=== PATIENT | female | born 1945 | race African-American/Black ===

== ENCOUNTER 2021-10-15 16:20 | Inpatient (IN) | payer OTHER, BC ==
[2021-10-15 18:12] LABS: ALBUMIN 2.3 g/dl (3.4-5.0); BILIRUBIN,TOTAL 0.8 mg/dl (0.2-1); CALCIUM 8.3 mg/dl (8.5-10); CREATININE 0.6 mg/dl (0.55-1.3); TOT PROT 6.1 g/dl (6.4-8.2)
[2021-10-15 18:26] LABS: ERYTHROCYTE SEDIMENTATION RATE 81 mm/hr (0-30)
[2021-10-15 18:34] LABS: EPITHELIAL CELLS FEW /hpf
[2021-10-15] MEDS ORDERED: POTASSIUM CHLORIDE ORAL LIQUID 20 MEQ/15 ML PO ONE (18:48)
[2021-10-15] MEDS ORDERED: POTASSIUM CHLORIDE ORAL LIQUID 20 MEQ/15 ML ONE (18:53)
[2021-10-15] MEDS ORDERED: SODIUM CHLORIDE 0.9% 1000 ML INFUS.BAG IV ONE (18:59)
[2021-10-15 19:15] LABS: HEMATOCRIT 34.7 % (32.4-45.2); MCHC 31.7 g/dl (32.0-36.0); MEAN CELL VOLUME 88.3 fl (80-96); MEAN PLT VOLUME 11.6 fl (7.5-11.1); PLATELET COUNT 322 10^3/uL (134-434); RBC 3.93 M/mm3 (3.60-5.2); WHITE BLOOD COUNT 21.3 K/mm3 (4.0-10.0)
[2021-10-15 20:26] LABS: ANISOCYTOSIS 2+; MACROCYTOSIS 0; PLATELET ESTIMATE NORMAL
[2021-10-15 20:28] LABS: MAGNESIUM 2.3 mg/dL (1.8-2.4)
[2021-10-15 21:51] VITALS: BMI 22.8
[2021-10-16 08:19] LABS: ALBUMIN 2.1 g/dl (3.4-5.0); BILIRUBIN,TOTAL 0.7 mg/dl (0.2-1); CALCIUM 7.9 mg/dl (8.5-10); CREATININE 0.6 mg/dl (0.55-1.3); TOT PROT 5.7 g/dl (6.4-8.2)
[2021-10-16] MEDS ORDERED: D5-1/2NS+20 MEQ KCL - 20 MEQ/1,000 ML INFUS.BAG IV SCH (08:30)
[2021-10-16] MEDS ORDERED: DEXTROSE 5%-WATER - 50 ML IVPB ONE (09:26)
[2021-10-16] MEDS ORDERED: cefTRIAXone SODIUM 1 GM VIAL ONE (09:26)
[2021-10-16] MEDS: CEFTRIAXONE 1 GM in DEXTROSE 5%-WATER - 50 ML IVPB SCH (10:16)
[2021-10-16 10:53] LABS: BASO % 0.4 % (0-2.0); EOS % 0.2 % (0-4.5); HEMATOCRIT 35.9 % (32.4-45.2); HEMOGLOBIN 11.2 GM/dL (10.7-15.3); LYMPH % 4.3 % (8-40); MCH 27.9 pg (25.7-33.7); MCHC 31.3 g/dl (32.0-36.0); MEAN CELL VOLUME 89.4 fl (80-96); MEAN PLT VOLUME 11.3 fl (7.5-11.1); MONO % 7.2 % (3.8-10.2); NEUT % 87.9 % (42.8-82.8); PLATELET COUNT 358 10^3/uL (134-434); RBC 4.02 M/mm3 (3.60-5.2); RDW 15.6 % (11.6-15.6)
[2021-10-16 11:45] LABS: ANISOCYTOSIS 0; HELMET CELLS 0; HOWELL-JOLLY BODIES 0; MACROCYTOSIS 0; OVALOCYTE 0; PLATELET ESTIMATE NORMAL; ROULEAU 0; SICKELED CELLS 0; TARGET CELLS 0; TEAR DROP CELLS 0; TOXIC GRANULATION 0
[2021-10-16] MEDS: D5-NS + 40 MEQ KCL - 40 MEQ/1,000 ML INFUS.BAG IV SCH (14:23)
[2021-10-16] MEDS ORDERED: ACETAMINOPHEN 325 MG TABLET (FP) PO ONE (22:05)
[2021-10-17 08:16] LABS: ALBUMIN 1.8 g/dl (3.4-5.0); BILIRUBIN,TOTAL 0.6 mg/dl (0.2-1); CALCIUM 7.9 mg/dl (8.5-10); CREATININE 0.5 mg/dl (0.55-1.3); TOT PROT 5.1 g/dl (6.4-8.2)
[2021-10-17] MEDS ORDERED: DEXTROSE 5%-WATER - 50 ML IVPB ONE (08:58)
[2021-10-17] MEDS ORDERED: cefTRIAXone SODIUM 1 GM VIAL ONE (08:58)
[2021-10-17] MEDS: CEFTRIAXONE 1 GM in DEXTROSE 5%-WATER - 50 ML IVPB SCH (09:09)
[2021-10-17] MEDS ORDERED: POTASSIUM CHLORIDE TABS 10 MEQ TABLET.ER (FP) PO ONE (09:15)
[2021-10-17 09:38] LABS: HEMATOCRIT 33.3 % (32.4-45.2); HEMOGLOBIN 10.5 GM/dL (10.7-15.3); MCH 28.3 pg (25.7-33.7); MCHC 31.6 g/dl (32.0-36.0); MEAN CELL VOLUME 89.4 fl (80-96); MEAN PLT VOLUME 10.8 fl (7.5-11.1); PLATELET COUNT 350 10^3/uL (134-434); RBC 3.73 M/mm3 (3.60-5.2); RDW 15.5 % (11.6-15.6); WHITE BLOOD COUNT 20.9 K/mm3 (4.0-10.0)
[2021-10-17] MEDS: D5-NS + 40 MEQ KCL - 40 MEQ/1,000 ML INFUS.BAG IV SCH (11:09)
[2021-10-17 11:14] LABS: ANISOCYTOSIS 1+; MACROCYTOSIS 0; PLATELET ESTIMATE NORMAL
[2021-10-17] MEDS: diphenhydrAMINE HCL 25 MG CAPSULE (FP) PO SCH (22:30)
[2021-10-18] MEDS ORDERED: LACTULOSE 20 GM/30 ML UDC (FOR ORAL USE ONLY) PO ONE (02:06)
[2021-10-18 10:25] LABS: ALBUMIN 1.9 g/dl (3.4-5.0); BILIRUBIN,TOTAL 0.5 mg/dl (0.2-1); CALCIUM 7.8 mg/dl (8.5-10); CREATININE 0.5 mg/dl (0.55-1.3); TOT PROT 5.8 g/dl (6.4-8.2)
[2021-10-18 12:41] LABS: HEMATOCRIT 32.1 % (32.4-45.2); HEMOGLOBIN 10.2 GM/dL (10.7-15.3); MCH 28.4 pg (25.7-33.7); MCHC 31.8 g/dl (32.0-36.0); MEAN CELL VOLUME 89.4 fl (80-96); MEAN PLT VOLUME 10.5 fl (7.5-11.1); PLATELET COUNT 399 10^3/uL (134-434); RBC 3.59 M/mm3 (3.60-5.2); RDW 15.5 % (11.6-15.6); WHITE BLOOD COUNT 19.6 K/mm3 (4.0-10.0)
[2021-10-18] MEDS: D5-NS + 40 MEQ KCL - 40 MEQ/1,000 ML INFUS.BAG IV SCH (15:34)
[2021-10-18] MEDS: diphenhydrAMINE HCL 25 MG CAPSULE (FP) PO SCH (21:39)
[2021-10-19 08:26] LABS: ALBUMIN 1.9 g/dl (3.4-5.0); BILIRUBIN,TOTAL 0.6 mg/dl (0.2-1); CALCIUM 8.2 mg/dl (8.5-10); CREATININE 0.4 mg/dl (0.55-1.3); TOT PROT 5.3 g/dl (6.4-8.2)
[2021-10-19 09:56] LABS: HEMOGLOBIN 10.3 GM/dL (10.7-15.3); MCH 27.9 pg (25.7-33.7); MCHC 31.1 g/dl (32.0-36.0); MEAN CELL VOLUME 89.7 fl (80-96); MEAN PLT VOLUME 10.7 fl (7.5-11.1); PLATELET COUNT 426 10^3/uL (134-434); RBC 3.68 M/mm3 (3.60-5.2); WHITE BLOOD COUNT 26.5 K/mm3 (4.0-10.0)
[2021-10-19] MEDS: D5-NS + 40 MEQ KCL - 40 MEQ/1,000 ML INFUS.BAG IV SCH (16:24)
[2021-10-19 17:03] LABS: HEPATITIS B SURFACE AG MATERN NON-REACTIVE (NONREACTIVE)
[2021-10-19] MEDS: diphenhydrAMINE HCL 25 MG CAPSULE (FP) PO SCH (22:18)
[2021-10-19] MEDS: SODIUM CHLORIDE 1,000 ML IV SCH (22:19)
[2021-10-20 09:31] LABS: ALBUMIN 1.8 g/dl (3.4-5.0); BILIRUBIN,TOTAL 0.6 mg/dl (0.2-1); CREATININE 0.5 mg/dl (0.55-1.3); TOT PROT 5.3 g/dl (6.4-8.2)
[2021-10-20 09:43] LABS: HEMATOCRIT 30.9 % (32.4-45.2); HEMOGLOBIN 9.8 GM/dL (10.7-15.3); MCH 28.3 pg (25.7-33.7); MCHC 31.7 g/dl (32.0-36.0); MEAN CELL VOLUME 89.2 fl (80-96); MEAN PLT VOLUME 10.2 fl (7.5-11.1); PLATELET COUNT 398 10^3/uL (134-434); RBC 3.47 M/mm3 (3.60-5.2); RDW 15.8 % (11.6-15.6); WHITE BLOOD COUNT 18.5 K/mm3 (4.0-10.0)
[2021-10-20] MEDS: HEPARIN NA (PORCINE) 5,000 UNITS/ML 1ML VIAL SQ SCH (21:04)
[2021-10-20] MEDS: diphenhydrAMINE HCL 25 MG CAPSULE (FP) PO SCH (21:04)
[2021-10-20] MEDS: SODIUM CHLORIDE 1,000 ML IV SCH (21:04)
[2021-10-20] MEDS: D5-NS + 40 MEQ KCL - 40 MEQ/1,000 ML INFUS.BAG IV SCH (21:05)
[2021-10-21] MEDS: HEPARIN NA (PORCINE) 5,000 UNITS/ML 1ML VIAL SQ SCH ×2 (10:00→21:43)
[2021-10-21] MEDS: SODIUM CHLORIDE 1,000 ML IV SCH (21:44)
[2021-10-21] MEDS: diphenhydrAMINE HCL 25 MG CAPSULE (FP) PO SCH (21:44)
[2021-10-21 23:10] LABS: MYOGLOBIN SERUM 2471 ng/mL (25-58)
[2021-10-22 08:48] LABS: ALBUMIN 1.8 g/dl (3.4-5.0); BILIRUBIN,TOTAL 0.6 mg/dl (0.2-1); CALCIUM 7.9 mg/dl (8.5-10); CREATININE 0.5 mg/dl (0.55-1.3); TOT PROT 5.2 g/dl (6.4-8.2)
[2021-10-22 09:59] LABS: HEMATOCRIT 28.8 % (32.4-45.2); HEMOGLOBIN 9.6 GM/dL (10.7-15.3); MCH 29.2 pg (25.7-33.7); MCHC 33.4 g/dl (32.0-36.0); MEAN CELL VOLUME 87.5 fl (80-96); MEAN PLT VOLUME 9.7 fl (7.5-11.1); PLATELET COUNT 305 10^3/uL (134-434); RBC 3.29 M/mm3 (3.60-5.2); RDW 15.9 % (11.6-15.6); WHITE BLOOD COUNT 13.1 K/mm3 (4.0-10.0)
[2021-10-22 10:08] LABS: COXSACKIE A16 IGM Negative titer (Neg:<1:10); COXSACKIE A24 IGM Negative titer (Neg:<1:10); COXSACKIE A7 IGM Negative titer (Neg:<1:10); COXSACKIE A9 IGM Negative titer (Neg:<1:10)
[2021-10-22] MEDS: HEPARIN NA (PORCINE) 5,000 UNITS/ML 1ML VIAL SQ SCH ×2 (10:14→21:26)
[2021-10-22] MEDS ORDERED: POTASSIUM CHLORIDE TABS 10 MEQ TABLET.ER (FP) PO ONE (11:45)
[2021-10-22] MEDS: BANATROL PLUS POWDER PACKET PO SCH ×3 (13:16→21:27)
[2021-10-22] MEDS ORDERED: POTASSIUM CHLORIDE TABS 20 MEQ TABLET.ER (FP) PO ONE (13:30)
[2021-10-22] MEDS: SODIUM CHLORIDE 1,000 ML IV SCH (16:57)
[2021-10-22] MEDS: diphenhydrAMINE HCL 25 MG CAPSULE (FP) PO SCH (21:26)
[2021-10-23 02:07] LABS: FIBROSIS SCORE. 0.14 (0.00-0.21); HCV ALPHA 2 MACRO CHART 114 mg/dL (110-276); NECRO.INFLAM ACT.SCORE 0.75 (0.00-0.17); NECROINFLAM. ACTIVITY GRADE A3-Severe activity (.)
[2021-10-23] MEDS: BANATROL PLUS POWDER PACKET PO SCH (06:42)
[2021-10-23 06:48] VITALS: BP 121/89; PULSE 93; TEMP 99.6
[2021-10-23] MEDS: HEPARIN NA (PORCINE) 5,000 UNITS/ML 1ML VIAL SQ SCH (09:50)
== END 2021-10-23 13:08 | DRG 558 ==
LOC: FER 16:20 → FM/S 20:23
PROVIDERS: ADMIT Internal Medicine; ATTEND Family Medicine
DX: M62.82 Rhabdomyolysis (principal); E87.1 Hypo-osmolality and hyponatremia; I31.3 Pericardial effusion (noninflammatory); N39.0 Urinary tract infection, site not specified; R62.7 Adult failure to thrive; E87.6 Hypokalemia; D72.829 Elevated white blood cell count, unspecified; I10 Essential (primary) hypertension; E78.5 Hyperlipidemia, unspecified
CPT/HCPCS: 36415; 70450-TC; 71045-TC-FY; 71250-TC; 72131-TC; 73030-TC-LT-FY; 74176-TC; 80048; 80053; 80061; 81003; 81015; 82085; 82140; 82172; 82306; 82550; 82553; 82607; 82746; 82977; 83010; 83036; 83615; 83735; 83874; 83883; 83935; 84300; 84439; 84443; 84460; 85025; 85027; 85651; 86038; 86140; 86235; 86431; 86480; 86618; 86658; 86705; 86707; 86708; 86780; 87040; 87086; 87340; 87522; 87804; 87807; 87902; 93005; 93306-TC; 97116-GP; 97162-GP; 99285-25; C9803; J1644; U0003; U0005

== ENCOUNTER 2021-12-19 16:04 | Inpatient (IN) | payer OTHER, BC ==
[2021-12-19] MEDS ORDERED: SODIUM CHLORIDE 0.9% 500 ML INFUS.BAG IV ONE (17:33)
[2021-12-19] MEDS ORDERED: ACETAMINOPHEN 1000 MG/100 ML BAG IVPB ONE (17:33)
[2021-12-19] MEDS ORDERED: ACETAMINOPHEN INJECTION 100 ML IVPB ONE (18:28)
[2021-12-19 18:31] LABS: PH,URINE 6.5 (5.0-8.0); URINE APPEARANCE CLEAR; URINE BILIRUBIN NEGATIVE (NEGATIVE); URINE COLOR YELLOW; URINE GLUCOSE (UA) NEGATIVE (NEGATIVE); URINE KETONE TRACE (NEGATIVE); URINE LEUK ESTERASE NEGATIVE (NEGATIVE); URINE NITRITE NEGATIVE (NEGATIVE); URINE PROTEIN TRACE (NEGATIVE); URINE UROBILINOGEN 4.0 E.U/dl mg/dL (0.2-1.0)
[2021-12-19 18:56] LABS: VENOUS BASE EXCESS -0.9 mmol/L (-2-2); VENOUS PCO2 33.4 mmHg (38-52); VENOUS PH 7.451 (7.310-7.410)
[2021-12-19 18:57] LABS: BASO % 0.8 % (0-2.0); HEMATOCRIT 24.9 % (32.4-45.2); HEMOGLOBIN 7.6 GM/dL (10.7-15.3); LYMPH % 8.1 % (8-40); MCH 24.6 pg (25.7-33.7); MCHC 30.6 g/dl (32.0-36.0); MEAN CELL VOLUME 80.5 fl (80-96); MEAN PLT VOLUME 9.6 fl (7.5-11.1); MONO % 7.4 % (3.8-10.2); NEUT % 82.7 % (42.8-82.8); PLATELET COUNT 375 10^3/uL (134-434); RDW 17.8 % (11.6-15.6)
[2021-12-19] MEDS ORDERED: CEFEPIME HCL/D5W 2 GM/50 ML BAG IVPB ONE (19:12)
[2021-12-19] MEDS ORDERED: VANCOMYCIN/WATER 1,250 MG/250 ML BAG IVPB ONE (19:17)
[2021-12-19 19:26] LABS: ALBUMIN 2.5 g/dl (3.4-5.0); BLOOD UREA NITROGEN 8.7 mg/dL (7-18); CALCIUM 9.1 mg/dL (8.5-10.1)
[2021-12-19 19:28] LABS: CREATININE 0.6 mg/dL (0.55-1.3)
[2021-12-19 19:31] LABS: BILIRUBIN,TOTAL 0.4 mg/dL (0.2-1)
[2021-12-19] MEDS ORDERED: CEFEPIME 2 GM/100 ML BAG IVPB ONE (19:34)
[2021-12-19] MEDS ORDERED: VANCOMYCIN/WATER BAGS 1,250 MG/250 ML BAG IVPB ONE (19:38)
[2021-12-19] MEDS ORDERED: CEFEPIME 2 GM in DEXTROSE 5%-WATER 100 ML IVPB ONE (20:15)
[2021-12-19] MEDS ORDERED: POLYETHYLENE GLYCOL (HEALTHYLAX) 3350 17 GM PACKET PO PRN (21:20)
[2021-12-19] MEDS ORDERED: ACETAMINOPHEN 325 MG TABLET (FP) PO PRN (21:20)
[2021-12-20 00:07] LABS: ACTIVATED PTT 36.7 SECONDS (25.2-36.5); INR 1.21 (0.83-1.09); PROTHROMBIN TIME (PATIENT) 13.9 SEC (9.7-13.0)
[2021-12-20 00:11] LABS: MAGNESIUM 2.2 mg/dL (1.8-2.4)
[2021-12-20 00:15] LABS: PHOSPHOROUS 4.1 mg/dL (2.5-4.9)
[2021-12-20] MEDS ORDERED: METOPROLOL TARTRATE 5 MG/5 ML VIAL IVPUSH PRN (00:57)
[2021-12-20] MEDS ORDERED: VANCOMYCIN 1 GM in D5W (PRE-DOCKED) 1,000 MG/250 ML IVPB SCH (08:00)
[2021-12-20 09:20] LABS: BASO % 0.5 % (0-2.0); HEMATOCRIT 24.3 % (32.4-45.2); HEMOGLOBIN 7.8 GM/dL (10.7-15.3); LYMPH % 5.5 % (8-40); MCH 25.5 pg (25.7-33.7); MCHC 31.9 g/dl (32.0-36.0); MEAN CELL VOLUME 79.8 fl (80-96); MEAN PLT VOLUME 9.2 fl (7.5-11.1); MONO % 5.5 % (3.8-10.2); NEUT % 87.5 % (42.8-82.8); PLATELET COUNT 419 10^3/uL (134-434); RBC 3.05 M/mm3 (3.60-5.2); RDW 17.8 % (11.6-15.6); WHITE BLOOD COUNT 14.4 K/mm3 (4.0-10.0)
[2021-12-20 09:23] LABS: INR 1.22 (0.83-1.09); PROTHROMBIN TIME (PATIENT) 14.1 SEC (9.7-13.0)
[2021-12-20 09:25] LABS: ACTIVATED PTT 32.9 SECONDS (25.2-36.5)
[2021-12-20 09:31] LABS: BLOOD UREA NITROGEN 6.4 mg/dL (7-18); CALCIUM 8.4 mg/dL (8.5-10.1); MAGNESIUM 2.2 mg/dL (1.8-2.4)
[2021-12-20 09:35] LABS: CREATININE 0.4 mg/dL (0.55-1.3); PHOSPHOROUS 3.7 mg/dL (2.5-4.9)
[2021-12-20] MEDS: amLODIPine BESYLATE 5 MG TABLET (FP) PO SCH ×2 (09:37→11:01)
[2021-12-20] MEDS ORDERED: CEFEPIME IVPB SCH (10:00)
[2021-12-20] MEDS ORDERED: WATER IVPB SCH (10:00)
[2021-12-20] MEDS ORDERED: VANCOMYCIN/WATER FOR INJ (PEG) 1,000 MG/200 ML BAG IVPB SCH (10:00)
[2021-12-20] MEDS ORDERED: CEFEPIME HCL/D5W 2 GM/50 ML BAG IVPB SCH (10:00)
[2021-12-20] MEDS ORDERED: DEXTROSE 5% IVPB SCH (10:00)
[2021-12-20] MEDS ORDERED: CEFEPIME 2 GM in DEXTROSE 5%-WATER 2 GM/100 ML BAG IVPB SCH (10:00)
[2021-12-20] MEDS ORDERED: HYDROCHLOROTHIAZIDE 12.5 MG CAPSULE (FP) PO SCH (10:00)
[2021-12-20] MEDS ORDERED: DEXTROSE 5%-WATER 100 ML IVPB ONE (10:39)
[2021-12-20] MEDS ORDERED: CEFEPIME HCL 2 GM VIAL (RESTRICTED TO ID) ONE (10:39)
[2021-12-20] MEDS: VANCOMYCIN 1 GM in D5W (PRE-DOCKED) 1,000 MG/250 ML IVPB SCH ×2 (12:41→12:43)
[2021-12-20 16:05] VITALS: BMI 21.2
[2021-12-20] MEDS ORDERED: ATORVASTATIN CA 40 MG TABLET (FP) PO SCH (22:00)
[2021-12-21 08:46] LABS: BASO % 0.7 % (0-2.0); EOS % 0.9 % (0-4.5); HEMATOCRIT 24.5 % (32.4-45.2); HEMOGLOBIN 7.5 GM/dL (10.7-15.3); LYMPH % 6.2 % (8-40); MCH 24.8 pg (25.7-33.7); MCHC 30.7 g/dl (32.0-36.0); MEAN CELL VOLUME 80.9 fl (80-96); MEAN PLT VOLUME 9.5 fl (7.5-11.1); MONO % 6.2 % (3.8-10.2); PLATELET COUNT 343 10^3/uL (134-434); RBC 3.02 M/mm3 (3.60-5.2); RDW 17.5 % (11.6-15.6); RETICULOCYTES 2.07 % (0.5-1.5); WHITE BLOOD COUNT 15.1 K/mm3 (4.0-10.0)
[2021-12-21 08:50] LABS: INR 1.24 (0.83-1.09); PROTHROMBIN TIME (PATIENT) 14.3 SEC (9.7-13.0)
[2021-12-21 09:14] LABS: BLOOD UREA NITROGEN 6.3 mg/dL (7-18); CALCIUM 8.1 mg/dL (8.5-10.1)
[2021-12-21 09:17] LABS: CREATININE 0.5 mg/dL (0.55-1.3)
[2021-12-21] MEDS: POLYETHYLENE GLYCOL (HEALTHYLAX) 3350 17 GM PACKET PO SCH (10:23)
[2021-12-21] MEDS: PANTOPRAZOLE 40 MG TABLET PO SCH (10:23)
[2021-12-21] MEDS: amLODIPine BESYLATE 5 MG TABLET (FP) PO SCH ×2 (10:23→11:54)
[2021-12-21] MEDS ORDERED: IRON SUCROSE INJECTION 200 MG in SODIUM CHLORIDE 90 ML IVPB ONE (16:30)
[2021-12-22 08:56] LABS: BASO % 0.3 % (0-2.0); EOS % 1.3 % (0-4.5); HEMATOCRIT 26.8 % (32.4-45.2); HEMOGLOBIN 8.3 GM/dL (10.7-15.3); LYMPH % 7.7 % (8-40); MCH 25.2 pg (25.7-33.7); MEAN CELL VOLUME 81.4 fl (80-96); MEAN PLT VOLUME 9.6 fl (7.5-11.1); MONO % 6.7 % (3.8-10.2); PLATELET COUNT 386 10^3/uL (134-434); WHITE BLOOD COUNT 14.1 K/mm3 (4.0-10.0)
[2021-12-22 09:11] LABS: CALCIUM 8.7 mg/dL (8.5-10.1)
[2021-12-22 09:15] LABS: CREATININE 0.5 mg/dL (0.55-1.3)
[2021-12-22 09:16] LABS: TOT PROT 6.7 g/dl (6.4-8.2)
[2021-12-22 09:18] LABS: BILIRUBIN,TOTAL 0.5 mg/dL (0.2-1)
[2021-12-22] MEDS: predniSONE 20 MG TABLET (UD) PO SCH (10:57)
[2021-12-22] MEDS: PANTOPRAZOLE 40 MG TABLET PO SCH (10:57)
[2021-12-22] MEDS: POLYETHYLENE GLYCOL (HEALTHYLAX) 3350 17 GM PACKET PO SCH (10:57)
[2021-12-22] MEDS: FAMOTIDINE 20 MG TABLET PO SCH (10:58)
[2021-12-22] MEDS: amLODIPine BESYLATE 5 MG TABLET (FP) PO SCH (10:58)
[2021-12-23 09:59] LABS: LDH 236 U/L (84-246)
[2021-12-23] MEDS: predniSONE 20 MG TABLET (UD) PO SCH (10:22)
[2021-12-23] MEDS: POLYETHYLENE GLYCOL (HEALTHYLAX) 3350 17 GM PACKET PO SCH (10:22)
[2021-12-23] MEDS: FAMOTIDINE 20 MG TABLET PO SCH (10:22)
[2021-12-23] MEDS: amLODIPine BESYLATE 5 MG TABLET (FP) PO SCH (10:22)
[2021-12-23] MEDS: PANTOPRAZOLE 40 MG TABLET PO SCH (10:22)
[2021-12-24] MEDS: POLYETHYLENE GLYCOL (HEALTHYLAX) 3350 17 GM PACKET PO SCH (09:34)
[2021-12-24] MEDS: predniSONE 20 MG TABLET (UD) PO SCH (09:35)
[2021-12-24] MEDS: FAMOTIDINE 20 MG TABLET PO SCH (09:35)
[2021-12-24] MEDS: amLODIPine BESYLATE 5 MG TABLET (FP) PO SCH (09:35)
[2021-12-24] MEDS: PANTOPRAZOLE 40 MG TABLET PO SCH (09:36)
[2021-12-24 11:47] LABS: HEMATOCRIT 26.8 % (32.4-45.2); HEMOGLOBIN 8.3 GM/dL (10.7-15.3); MCH 25.2 pg (25.7-33.7); MCHC 31.1 g/dl (32.0-36.0); MEAN PLT VOLUME 9.2 fl (7.5-11.1); PLATELET COUNT 517 10^3/uL (134-434); RBC 3.31 M/mm3 (3.60-5.2); RDW 18.1 % (11.6-15.6); WHITE BLOOD COUNT 15.1 K/mm3 (4.0-10.0)
[2021-12-24 11:52] LABS: CALCIUM 9.3 mg/dL (8.5-10.1)
[2021-12-24 11:53] LABS: ALBUMIN 2.4 g/dl (3.4-5.0); BLOOD UREA NITROGEN 10.5 mg/dL (7-18)
[2021-12-24 11:56] LABS: CREATININE 0.6 mg/dL (0.55-1.3)
[2021-12-24 11:58] LABS: BILIRUBIN,TOTAL 0.3 mg/dL (0.2-1); TOT PROT 7.3 g/dl (6.4-8.2)
[2021-12-24 14:40] VITALS: BP 139/87; PULSE 96; TEMP 97.5
[2021-12-24 16:08] LABS: ATYPICAL pANCA <1:20 titer (Neg:<1:20); C-ANCA <1:20 titer (Neg:<1:20)
[2021-12-24 17:07] LABS: FREE KAPPA,SERUM 64.4 mg/L (3.3-19.4)
[2021-12-24] MEDS ORDERED: ATORVASTATIN CA 40 MG TABLET (FP) PO SCH (22:00)
[2021-12-25 06:08] LABS: SARS-CoV-2 NAA Not Detected (Not Detected)
== END 2021-12-24 16:16 | disposition home health service (06) | DRG 378 ==
LOC: JER 16:04 → JERBED 20:39 → J8W 12-20 00:52
PROVIDERS: ADMIT Internal Medicine; ATTEND Family Medicine
PROC: 0DB98ZX Excision of Duodenum, Via Natural or Artificial Opening Endoscopic, Diagnostic (ICD-10-PCS; 2021-12-23)
PROC: 0DB68ZX Excision of Stomach, Via Natural or Artificial Opening Endoscopic, Diagnostic (ICD-10-PCS; principal; 2021-12-23 11:00)
DX: K29.71 Gastritis, unspecified, with bleeding (principal); I31.3 Pericardial effusion (noninflammatory); E46 Unspecified protein-calorie malnutrition; R62.7 Adult failure to thrive; I10 Essential (primary) hypertension; J44.9 Chronic obstructive pulmonary disease, unspecified; D64.9 Anemia, unspecified; R63.4 Abnormal weight loss; E78.5 Hyperlipidemia, unspecified; R35.0 Frequency of micturition; M25.462 Effusion, left knee; R42 Dizziness and giddiness; E88.09 Other disorders of plasma-protein metabolism, not elsewhere classified; D72.829 Elevated white blood cell count, unspecified; K57.90 Diverticulosis of intestine, part unspecified, without perforation or abscess without bleeding; R63.0 Anorexia; K22.70 Barrett's esophagus without dysplasia; E78.00 Pure hypercholesterolemia, unspecified; B96.81 Helicobacter pylori [H. pylori] as the cause of diseases classified elsewhere; K44.9 Diaphragmatic hernia without obstruction or gangrene; F41.9 Anxiety disorder, unspecified; M60.9 Myositis, unspecified; Z68.21 Body mass index [BMI] 21.0-21.9, adult
CPT/HCPCS: 36415; 71045-TC-FY; 73562-TC-LT-FY; 80048; 80053; 81003; 82272; 82550; 82607; 82728; 82747; 82784; 82803; 83520; 83540; 83550; 83605; 83615; 83735; 83883; 84100; 84155; 84165; 84439; 84443; 84484; 85014; 85025; 85027; 85045; 85610; 85651; 85730; 86140; 86162; 86256; 86334; 87040; 87086; 87186; 87804; 88305-TC; 93005; 93010; 93971-TC; 97116-GP; 97161-GP; 99285-25; C9803-CS; J1756; U0003; U0005

== ENCOUNTER 2022-11-13 04:16 | Day surgery (SDC) | payer OTHER, BC ==
[2022-11-12 08:27] VITALS: BMI 23.6
[2022-11-13] MEDS ORDERED: KETOROLAC TROMETHAMINE 30 MG/1 ML VIAL ONE (08:40)
[2022-11-13 09:16] VITALS: TEMP 98
[2022-11-13 09:57] VITALS: RESP 20
[2022-11-13 11:19] VITALS: BP 115/62; PULSE 67
== END 2022-11-13 10:08 | disposition home or self-care (01) ==
LOC: JASU-ENDO 04:16
PROVIDERS: ATTEND Internal Medicine Gastroenterology
PROC: 0DJD8ZZ Inspection of Lower Intestinal Tract, Via Natural or Artificial Opening Endoscopic (ICD-10-PCS; principal; 2022-11-13 08:30)
DX: Z12.11 Encounter for screening for malignant neoplasm of colon (principal); K57.30 Diverticulosis of large intestine without perforation or abscess without bleeding; Z80.0 Family history of malignant neoplasm of digestive organs

== ENCOUNTER 2023-03-20 13:12 | Emergency (ER) | payer OTHER, BC ==
[2023-03-20 13:35] VITALS: BP 122/76; PULSE 95; RESP 16; TEMP 98; BMI 24.0
== END 2023-03-20 15:24 | disposition home or self-care (01) ==
LOC: FER 13:12
DX: M17.12 Unilateral primary osteoarthritis, left knee (principal); M25.462 Effusion, left knee; M25.562 Pain in left knee; M25.552 Pain in left hip; M79.605 Pain in left leg; M79.89 Other specified soft tissue disorders
CPT/HCPCS: 93971-TC; 99284-25

== ENCOUNTER 2024-12-12 21:19 | Inpatient (IN) | payer OTHER, BC ==
[2024-12-12 23:22] LABS: ABSOLUTE IMMATURE GRANULOCYTES 0.12 x10^3/uL (0.0-0.031); BASOPHILS # 0.04 x10^3/uL (0.01-0.08); EOSINOPHIL % 0.1 % (0.7-5.8); EOSINOPHILS # 0.02 x10^3/uL (0.04-0.36); HEMATOCRIT 30.8 % (34.1-44.9); HEMOGLOBIN 9.9 g/dL (11.2-15.7); MCHC 32.1 g/dl (32.2-35.5); MEAN CELL VOLUME 86.3 fl (79.4-94.8); MEAN PLT VOLUME 10.3 fl (9.4-12.3); MONOCYTE % 8.5 % (4.7-12.5); PLATELET COUNT 611 x10^3/uL (182-369); RDW 16.2 % (12.4-16.6)
[2024-12-12 23:37] LABS: ALBUMIN 3.3 g/dl (3.4-5.0); BILIRUBIN,TOTAL 0.7 mg/dl (0.2-1); CALCIUM 9.6 mg/dl (8.5-10.1); CREATININE 0.8 mg/dl (0.6-1.3); POTASSIUM 4.8 mmol/L (3.5-5.1); TOT PROT 6.7 g/dl (6.4-8.2)
[2024-12-13] MEDS ORDERED: ACETAMINOPHEN 1000 MG/100 ML BAG IVPB PRN (00:58)
[2024-12-13] MEDS ORDERED: KETOROLAC TROMETHAMINE 15 MG/ML VIAL ONE (01:06)
[2024-12-13] MEDS ORDERED: FAMOTIDINE 20 MG/50 ML IVPB 20 MG/50 ML MG IVPB ONE (01:06)
[2024-12-13] MEDS: FAMOTIDINE 20 MG/50 ML IVPB 20 MG/50 ML MG IVPB ONE (01:09)
[2024-12-13] MEDS: SODIUM CHLORIDE 0.9% 500 ML INFUS.BAG IV ONE (01:09)
[2024-12-13] MEDS: KETOROLAC TROMETHAMINE 15 MG/ML VIAL IVPUSH ONE (01:09)
[2024-12-13 02:09] VITALS: BMI 22.2
[2024-12-13] MEDS: PANTOPRAZOLE 40 MG TABLET PO SCH (16:43)
[2024-12-13] MEDS: HYDROXYCHLOROQUINE SO4 200 MG TABLET (FP) PO SCH (16:43)
[2024-12-13] MEDS: DULoxetine HCL 30 MG CAPSULE.DR PO SCH (16:44)
[2024-12-13] MEDS: DOCUSATE SODIUM 100 MG CAPSULE (FP) PO PRN (16:44)
[2024-12-13] MEDS: LISINOPRIL 10 MG TABLET PO SCH ×2 (19:12→21:21)
[2024-12-13 19:32] LABS: ERYTHROCYTE SEDIMENTATION RATE 95 mm/hr (0-30)
[2024-12-14 08:08] LABS: HEMATOCRIT 32.3 % (34.1-44.9); HEMOGLOBIN 10.2 g/dL (11.2-15.7); MCHC 31.6 g/dl (32.2-35.5); MEAN CELL VOLUME 87.1 fl (79.4-94.8); MEAN PLT VOLUME 10.6 fl (9.4-12.3); PLATELET COUNT 624 x10^3/uL (182-369); RDW 16.4 % (12.4-16.6)
[2024-12-14 08:49] LABS: CREATININE 0.6 mg/dl (0.6-1.3); MAGNESIUM 2.3 mg/dL (1.8-2.4); PHOSPHOROUS 3.8 (2.5-4.9); POTASSIUM 4.4 mmol/L (3.5-5.1)
[2024-12-14 09:12] LABS: INR 1.27 (0.83-1.09); PROTHROMBIN TIME (PATIENT) 14.1 SEC (9.7-13.0)
[2024-12-14] MEDS: ASPIRIN COATED 81 MG TABLET.EC PO SCH (09:37)
[2024-12-14] MEDS: KETOROLAC TROMETHAMINE 30 MG/1 ML VIAL IVPUSH PRN (21:37)
[2024-12-15] MEDS: INSULIN ASPART SLIDING SCALE (NOVOLOG) 1 VIAL SQ SCH (07:25)
[2024-12-15] MEDS: predniSONE 20 MG TABLET (UD) PO SCH (09:18)
[2024-12-15] MEDS: FAMOTIDINE 20 MG TABLET PO SCH (09:27)
[2024-12-15] MEDS: SULFAMETHOXAZOLE/TRIMETHOPRIM 800MG/160MG D.S. TABLET PO SCH (21:48)
[2024-12-16 22:49] VITALS: RESP 19
[2024-12-17] MEDS: IRON SUCROSE INJECTION 200 MG in SODIUM CHLORIDE 100 ML IVPB ONE (09:12)
[2024-12-17] MEDS: DOCUSATE SODIUM 100 MG CAPSULE (FP) PO ONE (09:48)
[2024-12-17 10:04] VITALS: BP 115/61; PULSE 86; TEMP 98.2
== END 2024-12-17 10:09 | DRG 93 ==
LOC: FER 21:19 → FM/S 12-13 00:55 → OBSVTOIN 12-14 11:22
PROVIDERS: ADMIT Internal Medicine; ATTEND Family Medicine
DX: G72.9 Myopathy, unspecified (principal); M17.0 Bilateral primary osteoarthritis of knee; E78.5 Hyperlipidemia, unspecified; R53.1 Weakness; M25.462 Effusion, left knee
CPT/HCPCS: 0241U-QW; 36415; 71045-TC-FY; 72131-TC; 72192-TC; 80048; 80053; 82085; 82550; 82962; 83735; 83874; 84100; 84439; 84443; 85025; 85610; 85651; 85730; 86140; 87086; 87186; 97116-GP; 97161-GP; 99285-25; G0378; J1756

== ENCOUNTER 2025-01-20 12:41 | Emergency (ER) | payer OTHER, BC ==
[2025-01-20 12:57] VITALS: BP 142/77; PULSE 94; RESP 19; TEMP 98; BMI 22.2
[2025-01-20] MEDS ORDERED: ACETAMINOPHEN 325 MG TABLET (FP) ONE (13:43)
[2025-01-20] MEDS: ACETAMINOPHEN 325 MG TABLET (FP) PO ONE (13:45)
== END 2025-01-20 16:26 | disposition home or self-care (01) ==
LOC: SUPCPDRO 12:41 → FER 12:41
DX: M71.21 Synovial cyst of popliteal space [Baker], right knee (principal); M79.661 Pain in right lower leg; R60.0 Localized edema
CPT/HCPCS: 93971-TC; 99284-25